=== PATIENT | male | born 1995 | race Two or more races ===

== ENCOUNTER 2021-05-24 21:36 | Emergency (ER) | payer OTHER ==
[~2021-05-24] VITALS: Ht 182.9 cm; Wt 97.5 kg
[2021-05-24 22:27] LABS: Basophils # (auto) 0 10 ^3/uL (0-0.2); Basophils % (auto) 0.2 % (0.0-2.0); Eosinophils # (auto) 0 10 ^3/uL (0-0.8); Neutrophils # (auto) 16.8 10 ^3/uL (1.6-8.6); Nucleated Red Blood Cells % 0.1 %
[2021-05-24 22:28] LABS: Hematocrit 49.6 % (41.0-53.0); Hemoglobin 17.5 g/dL (13.5-17.5); Lymphocytes # (auto) 0.7 10 ^3/uL (0.4-5.4); Lymphocytes % (auto) 4.1 % (10.0-50.0); Mean Corpuscular Hemoglobin 30.7 pg (28.0-32.0); Mean Corpuscular Hgb Conc. 35.3 g/dL (32.0-36.0); Monocytes # (auto) 0.7 10 ^3/uL (0-1.3); Monocytes % (auto) 3.7 % (0.0-12.0); Platelet Count (auto) 278 10^3/uL (140-450); Red Blood Cells 5.69 10^6/uL (4.5-5.90); Red Cell Distribution Width 12.7 % (11.8-14.3); White Blood Cell 18.3 10^3/uL (4.4-10.8)
[2021-05-24 22:50] LABS: Albumin 5.6 g/dL (3.4-5.0); Calcium 10.1 mg/dL (8.5-10.1); Magnesium 2.5 mg/dL (1.6-2.6); Potassium 4.4 mmol/L (3.5-5.1)
[2021-05-24 22:54] LABS: Bilirubin, Total 0.6 mg/dL (0.2-1.0); Total Protein 10.4 g/dL (6.4-8.2)
[2021-05-24] MEDS ORDERED: ONDANSETRON HCL 4 MG/2 ML VIAL IV ONE (23:00)
[2021-05-24 23:06] LABS: BUN/Creatinine Ratio 8.8
[2021-05-24 23:47] LABS: Lactic Acid w/Reflex 4.8 mmol/L (0.4-2.0)
[2021-05-24] MEDS ORDERED: IOHEXOL 300 MG/ML 100ML BOTTLE IJ ONE (23:52)
[2021-05-25] MEDS ORDERED: SODIUM CHLORIDE 0.9% 1,000 ML IV ONE
[2021-05-25 03:11] LABS: Urine Bacteria FEW /hpf (None Seen); Urine Blood Negative /uL (Negative); Urine Hyaline Cast FEW /lpf (0 - 2); Urine Mucus FEW (None Seen); Urine Specific Gravity 1.025 (1.001-1.035); Urine WBC 13 /hpf (0 - 3)
[2021-05-25] MEDS ORDERED: cefTRIAXone 1GM/50ML D5W 50 ML IV ONE (04:00)
[2021-05-25 07:55] VITALS: BP 96/61
== END 2021-05-25 08:49 | disposition short-term general hospital (02) ==
LOC: ER 21:43
DX: N17.9 Acute kidney failure, unspecified (principal); E87.2 Acidosis; T67.5XXA Heat exhaustion, unspecified, initial encounter; F12.10 Cannabis abuse, uncomplicated
CPT/HCPCS: 36415; 74176; 80053; 81001; 82550; 83605; 83735; 85025; 85049; 96361; 96365; 96375; 99285; J0696; J2405; J7030